=== PATIENT | male | born 1945 | race Caucasian/White ===

== ENCOUNTER 2020-09-09 09:10 | Inpatient (IN) ==
[2020-09-09 09:50] LABS: Hematocrit 48 % (42-52); Hemoglobin 15.7 g/dL (14.0-18.0); Mean Corpuscular HGB Conc 33 g/dL (31-36); Mean Corpuscular Hemoglobin 31 pg (27-31); Mean Corpuscular Volume 94 fL (80-94); Mean Platelet Volume 8.9 fL (7.4-10.4); Platelet Count 183 10^3/uL (150-450); Red Blood Count 5.08 10^6 /uL (4.18-5.48); Red Cell Distribution Width 14 % (10-15); White Blood Count 7.5 10^3/uL (3.5-10.8)
[2020-09-09 10:04] LABS: INR 1.13 (0.82-1.09)
[2020-09-09 10:10] LABS: Albumin 4.3 g/dL (3.2-5.2); Albumin/Globulin Ratio 1.7 (1-3); BUN/Creatinine Ratio 22.1 (8-20); Calcium 9.5 mg/dL (8.6-10.3); EGFR African American 69.7 (>60); EGFR Non-African American 57.6 (>60); Globulin 2.5 g/dL (2-4); Potassium 4.7 mmol/L (3.5-5.0); Total Bilirubin 0.8 mg/dL (0.2-1.0); Total Protein 6.8 g/dL (6.4-8.9)
[2020-09-09] MEDS ORDERED: Dextrose 50% Syringe 50 ml 25 GM/50 ML SYRINGE IV PUSH PRN (10:29)
[2020-09-09] MEDS ORDERED: fentaNYL 100 mcg/2 ml 50 MCG/ML VIAL ONE ×2 (17:21→17:22)
[2020-09-09] MEDS ORDERED: Midazolam 2 mg/2 ml VIAL 1 mg/ml 2 ml VIAL (2 mg) ONE (17:22)
[2020-09-09] MEDS ORDERED: Clindamycin 900 MG/D5W BAG IVPB ONE (19:00)
[2020-09-09 19:21] LABS: Body Fluid Source Pleural Fluid
[2020-09-09 20:14] LABS: Body Fluid Mono 21 %; Body Fluid Other Cells 4
[2020-09-10 07:41] LABS: LDH 134 U/L (140-271); Rheumatoid Factor < 10 IU/mL (<15)
[2020-09-11 13:09] LABS: Fluid Type: PLEURAL; Triglycerides (BF) 85 mg/dL
[2020-09-11 13:34] VITALS: BP 118/62
[2020-09-11 14:19] LABS: Fluid Type, Glucose PLEURAL; Glucose, BF 117 mg/dL
[2020-09-11 14:22] LABS: Fluid Type, Protein, Total PLEURAL
[2020-09-11 14:23] LABS: Lactate Dehydrogenase, BF 89 U/L
[2020-09-11 14:24] LABS: Albumin, BF 2.9 g/dL; Fluid Type, Albumin PLEURAL
== END 2020-09-11 16:10 | disposition home health service (06) | DRG 841 ==
LOC: ED 09:10 → SSU 11:24
PROVIDERS: ADMIT Internal Medicine; ATTEND Internal Medicine